=== PATIENT | male | born 1965 | race Caucasian/White ===

== ENCOUNTER 2024-03-04 16:17 | Day surgery (SDC) | payer MEDICARE ==
[2024-03-04] MEDS ORDERED: Xylocaine-Mpf 2% 5 Ml Vial IJ ONE (16:18)
[2024-03-04] MEDS ORDERED: Lactated Ringers 1,000 ML IV ONE (17:58)
[2024-03-04] MEDS ORDERED: DIPRIVAN 200 MG/20 ML IV ONE (18:02)
--- NOTE | 2024-03-04 19:07 | XRAY ---
Indication: Bilateral L4-S1 MBB. Intraoperative fluoroscopy provided for 12 seconds. Single digital spot image submitted for interpretation demonstrates posterior needle tips projecting over the expected left and right L4-S1 nerve roots. Correlate with intraoperative findings/report.
--- NOTE | 2024-03-05 10:02 | XRAY ---
12 seconds of fluoroscopy was used in surgery for a bilateral L4-S1 MBB.
== END 2024-03-04 18:30 | disposition home or self-care (01) ==
LOC: SDC-PAIN 16:17
PROVIDERS: ATTEND Psychiatry & Neurology Pain Medicine
DX: M47.816 Spondylosis without myelopathy or radiculopathy, lumbar region (principal)
CPT/HCPCS: 64493; 64494; 72020; 77002; J2704

== ENCOUNTER 2024-04-15 16:53 | Day surgery (SDC) | payer BC, MEDICARE ==
[2024-04-15] MEDS ORDERED: BUPIVACAINE 0.5% VIAL IJ ONE (16:54)
[2024-04-15] MEDS ORDERED: DIPRIVAN 200 MG/20 ML IV ONE (17:40)
[2024-04-15] MEDS ORDERED: Lactated Ringers 1,000 ML IV ONE (17:51)
--- NOTE | 2024-04-15 18:59 | XRAY ---
Indication: Bilateral L4-S1 MBB. Intraoperative fluoroscopy provided for 8 seconds. Single digital spot image submitted for interpretation demonstrates posterior needle tips projecting over the expected left and right L4-S1 nerve roots. Correlate with intraoperative findings/report.
--- NOTE | 2024-04-16 09:30 | XRAY ---
8 seconds of fluoroscopy was used in surgery for a bilateral L4-S1 MBB.
== END 2024-04-15 18:05 | disposition home or self-care (01) ==
LOC: SDC-PAIN 16:53
PROVIDERS: ATTEND Psychiatry & Neurology Pain Medicine
DX: M47.816 Spondylosis without myelopathy or radiculopathy, lumbar region (principal)
CPT/HCPCS: 64493; 64494; 72020; 77002; J2704

== ENCOUNTER 2024-05-27 17:14 | Day surgery (SDC) | payer BC, MEDICARE ==
[2024-05-27] MEDS ORDERED: Depo-Medrol 40 MG/ML IM ONE (17:15)
[2024-05-27] MEDS ORDERED: BUPIVACAINE 0.5% VIAL IJ ONE (17:15)
[2024-05-27] MEDS ORDERED: LIDOCAINE HCL 1% AMPUL 5 ML IJ ONE (17:15)
--- NOTE | 2024-05-27 20:55 | XRAY ---
Indication: Right L4-S1 RFA. Intraoperative fluoroscopy provided for 23 second. 4 digital spot image submitted for interpretation demonstrates posterior needle tips projecting over expected right L4-S1 nerve roots. Correlate with intraoperative findings/report.
--- NOTE | 2024-05-28 09:10 | XRAY ---
23 seconds of fluoroscopy was used in surgery for a right L4-S1 RFA.
== END 2024-05-27 19:10 | disposition home or self-care (01) ==
LOC: SDC-PAIN 17:14
PROVIDERS: ATTEND Psychiatry & Neurology Pain Medicine
DX: M47.817 Spondylosis without myelopathy or radiculopathy, lumbosacral region (principal)
CPT/HCPCS: 64635; 64636; 72100; 77002

== ENCOUNTER 2024-05-28 17:16 | Day surgery (SDC) | payer BC, MEDICARE ==
[~2024-05-28 17:16] MED LIST: DIPRIVAN 200 MG/20 ML IV ONE
[2024-05-28] MEDS ORDERED: BUPIVACAINE 0.5% VIAL IJ ONE (17:17)
[2024-05-28] MEDS ORDERED: LIDOCAINE HCL 1% AMPUL 5 ML IJ ONE (17:17)
[2024-05-28] MEDS ORDERED: Depo-Medrol 40 MG/ML IM ONE (17:17)
--- NOTE | 2024-05-28 21:46 | XRAY ---
Indication: Left L4-S1 RFA. Intraoperative fluoroscopy provided for 25 seconds. 5 digital spot images submitted for interpretation demonstrates posterior needle tips projecting over expected left L4-S1 nerve roots. Correlate with intraoperative findings/report.
--- NOTE | 2024-05-29 08:25 | XRAY ---
25 seconds of fluoroscopy was used in surgery for a left L4-S1 RFA.
== END 2024-05-28 18:10 | disposition home or self-care (01) ==
LOC: SDC-PAIN 17:16
PROVIDERS: ATTEND Psychiatry & Neurology Pain Medicine
DX: M47.817 Spondylosis without myelopathy or radiculopathy, lumbosacral region (principal)
CPT/HCPCS: 64635; 64636; 72100; 77002; J2704